=== PATIENT | male | born 1965 | race Caucasian/White ===

== ENCOUNTER 2016-12-07 10:48 | Outpatient (CLI) | payer MEDICAID | END 2016-12-07 10:49 | disposition home or self-care (01) | DX: R53.83 Other fatigue (principal); M79.644 Pain in right finger(s) ==

== ENCOUNTER 2017-10-19 16:25 | Outpatient (CLI) | payer MEDICAID ==
--- NOTE | 2017-10-19 22:41 | XRAY Report ---
EXAM: CHEST RADIOGRAPHY EXAM DATE: 10/19/2017 04:40 PM. CLINICAL HISTORY: COUGH. COMPARISON: 01/19/2016. TECHNIQUE: 2 views. FINDINGS: Lungs/Pleura: No focal opacities evident. No pleural effusion. No pneumothorax. Normal volumes. Mediastinum: Heart and mediastinal contours are unremarkable. Other: None. IMPRESSION: No acute intrathoracic plain film abnormality. [facility] Referring Provider Line: [phone] SITE ID: [id number]
== END 2017-10-19 16:26 | disposition home or self-care (01) ==
LOC: DI.S 16:25
PROVIDERS: ATTEND Nurse Practitioner Family
DX: R06.02 Shortness of breath (principal)
CPT/HCPCS: 71020

== ENCOUNTER 2017-12-18 13:09 | Outpatient (CLI) | payer MEDICAID ==
--- NOTE | 2017-12-18 18:04 | XRAY Report ---
THREE VIEW RIGHT FOURTH FINGER: 12/18/2017 CLINICAL INDICATION: Pain. FINDINGS: AP, lateral, oblique views of the right fourth finger demonstrate no evidence of fracture or dislocation. Soft tissue swelling is seen at the proximal interphalangeal joint. No radiopaque foreign body is seen in the soft tissues. IMPRESSION: SOFT TISSUE SWELLING, BUT NO EVIDENCE OF FRACTURE. TD: 12/18/2017 18:03
== END 2017-12-18 13:10 | disposition home or self-care (01) ==
LOC: DI.S 13:09
PROVIDERS: ATTEND Nurse Practitioner Family
DX: M79.644 Pain in right finger(s) (principal); R22.31 Localized swelling, mass and lump, right upper limb
CPT/HCPCS: 73140

== ENCOUNTER 2018-03-12 09:56 | Outpatient (CLI) | payer MEDICAID ==
--- NOTE | 2018-03-12 12:55 | XRAY Report ---
THREE VIEW LEFT FOURTH FINGER: 03/12/2018 CLINICAL INDICATION: Fall, pain. FINDINGS: AP, lateral, oblique views of the left fourth finger demonstrate soft tissue swelling at the proximal interphalangeal joint. There is no evidence of acute fracture or dislocation. No foreign body is seen in the soft tissues. IMPRESSION: SOFT TISSUE SWELLING, BUT NO EVIDENCE OF ACUTE FRACTURE. TD: 03/12/2018 12:55
== END 2018-03-12 09:57 | disposition home or self-care (01) ==
LOC: DI.S 09:56
PROVIDERS: ATTEND Nurse Practitioner Family
DX: M25.442 Effusion, left hand (principal); M79.645 Pain in left finger(s)
CPT/HCPCS: 73140

== ENCOUNTER 2018-03-22 13:50 | Outpatient (CLI) | payer MEDICAID ==
[~2018-03-22 13:50] MED LIST: GADOBUTROL 10 MMOL/10 ML SYRINGE ONE
[2018-03-22] MEDS ORDERED: GADOBUTROL 10 MMOL/10 ML SYRINGE IVP ONE (15:00)
--- NOTE | 2018-03-23 16:29 | MRI Report ---
EXAM: MRI LUMBAR SPINE WITHOUT AND WITH CONTRAST EXAM DATE: 03/22/2018 02:00 PM. CLINICAL HISTORY: 52-year-old with chronic low back pain and pain radiating to the lower extremities. Evaluate for lumbar pathology. COMPARISONS: MR lumbar spine 01/15/2013. TECHNIQUE: Multiplanar, multisequence T1-weighted and fluid-sensitive sequences of the lumbar spine f rom T12 to S1 before and after administration of intravenous contrast. Other: None. IV contrast: 8 cc GADAVIST. FINDINGS: Motion artifact technically limits evaluation. Spinal Cord: The conus terminates at L2-L3 which is low-lying but within normal limits. The conus med ullaris and cauda equina are unremarkable. Alignment: There is 1-2 mm coronal retrolisthesis of L2-L3, L3 on L4, L4 and L5, and L5 on S1. Bone Marrow: Five auc-qfa-ibjsxeu lumbar vertebral bodies are assumed. There is enhancing edema seen involving the spinous processes of L4 and L5 with mild edema and enhancement of the surrounding soft tissues. No rim-enhancing fluid collection seen. No acute fracture. There is minimal enhancing endpla te edema seen throughout the lumbar spine. No marrow replacing lesion. Disk Levels/Facets: T12-L1: Minimal endplate degenerative change with mild loss of disk height. No spinal canal stenosis or neural foraminal narrowing. L1-L2: Minimal endplate degenerative change with mild loss of disk height. No spinal canal stenosis o r neural foraminal narrowing. L2-L3: Minimal endplate degenerative change with mild loss of disk height. Small posterior disk bulge . Bilateral facet disease. Fluid is seen within the facets bilaterally. No spinal canal stenosis. Min imal bilateral neural foraminal narrowing. L3-L4: Minimal endplate degenerative change with mild loss of disk height. Small posterior disk bulge with superimposed bilateral foraminal lateral disk protrusions, greater on the right. Bilateral face t disease. Fluid is seen within the facets bilaterally. No spinal canal stenosis. Mild to moderate ri ght and mild left neural foraminal narrowing. L4-L5: Minimal endplate degenerative change with mild loss of disk height. Small posterior disk bulge with superimposed bilateral foraminal lateral disk protrusions, greater on the right. Bilateral face t disease. Fluid is seen within the facets bilaterally. No spinal canal stenosis. Moderate bilateral neural foraminal narrowing with potential mass effect on exiting bilateral L4 nerve roots. L5-S1: Minimal endplate degenerative change with mild loss of disk height and slight disk desiccation . Small posterior disk bulge. Bilateral facet disease. No spinal canal stenosis. Minimal bilateral ne ural foraminal narrowing. Spinal Canal: No enhancing masses within the spinal canal. No epidural abscess. Musculature: Normal. No edema, abnormal enhancement, or fatty atrophy. Other: The visualized retroperitoneum is unremarkable. IMPRESSION: 1. There is 1-2 mm coronal retrolisthesis of L2-L3, L3 on L4, L4 and L5, and L5 on S1. 2. There is enhancing edema seen involving the spinous processes of L4 and L5 with mild edema and enh ancement of the surrounding soft tissues. No rim-enhancing fluid collection seen. Finding may represe nt [place]'s disease. 3. Multilevel degenerative changes that appear slightly progressed from 01/15/2013. L2-L3: No spinal canal stenosis. Minimal bilateral neural foraminal narrowing. L3-L4: No spinal canal stenosis. Mild to moderate right and mild left neural foraminal narrowing. L4-L5: No spinal canal stenosis. Moderate bilateral neural foraminal narrowing with potential mass ef fect on exiting bilateral L4 nerve roots. L5-S1: Small posterior disk bulge. Bilateral facet disease. No spinal canal stenosis. Minimal bilater al neural foraminal narrowing. Comment: The following findings are so common in adults without low back pain that while we report th eir presence, they must be interpreted with caution and in the context of the clinical situation. (Re cindy Awad et al, Spine 2001) Prevalence of findings in patients without low back pain: Disk degeneration (any evidence): 92% Disk desiccation/T2 signal loss: 83% Disk height loss: 56% Disk bulge: 64% Disk protrusion: 32% Annular tear/high intensity zone: 38% [facility] Referring Provider Line: [phone] SITE ID: [id number]
== END 2018-03-22 13:51 | disposition home or self-care (01) ==
LOC: DI 13:50
PROVIDERS: ATTEND Psychiatry & Neurology Neurology
DX: M51.17 Intervertebral disc disorders with radiculopathy, lumbosacral region (principal); R20.2 Paresthesia of skin
CPT/HCPCS: 72158; A9585

== ENCOUNTER 2022-12-08 13:50 | Outpatient (CLI) | payer MEDICAID | END 2022-12-08 13:51 | disposition critical access hospital (66) | LOC: EMS 13:50 | DX: M54.9 Dorsalgia, unspecified (principal); G89.29 Other chronic pain; R29.898 Other symptoms and signs involving the musculoskeletal system; R20.0 Anesthesia of skin | CPT/HCPCS: A0425; A0429; A0999 ==

== ENCOUNTER 2022-12-08 14:27 | Emergency (ER) | payer MEDICAID ==
[2022-12-08 14:40] VITALS: BP 186/101
--- NOTE | 2022-12-08 14:45 | ED Physician Documentation ---
PD HPI BACK PAIN - Stated complaint Stated Complaint: BACK PX - History obtained from History obtained from: Patient, EMS - History of Present Illness Timing - onset: Chronic (The patient claims chronic leg pain that is unrelenting and keeps him awake and he never has any cessation of it. I asked the duration and he said for many years. Review of prior visits showed back pain complaint as far back as 2016 with apparently some disability from it. Neurology 2018.) Timing - duration: Years Timing - details: Gradual onset, Still present, Waxing and waning. No: Intermittant Location: Lower, Right, Left, Other (with lower ext pain both legs chronically as well.) Quality: Pain, Aching. No: Spasm Associated symptoms: Numbness (small area of numbness left medial lower leg distal to prior vein stripping. No general numbness.). No: Fever, Weakness Worsened by: Movement (walking causes more leg pain.). No: Palpation Similar symptoms before: No diagnosis Recently seen: Not recently seen (I asked his last visits and he states clinic v isits with Dr. Austin in [facility]. That provider left over a year or more ago.) Review of Systems Constitutional: reports: Fatigue. denies: Fever, Chills Nose: denies: Rhinorrhea / runny nose, Congestion Throat: denies: Sore throat Respiratory: denies: Cough Musculoskeletal: reports: Back pain. denies: Neck pain, Extremity swelling Neurologic: denies: Focal weakness, Difficulty speaking PD PAST MEDICAL HISTORY - Past Medical History Cardiovascular: None Respiratory: None Endocrine/Autoimmune: None GI: None : None HEENT: None Psych: Depression, Panic attacks Musculoskeletal: Chronic back pain Derm: None - Past Surgical History Past Surgical History: Yes HEENT: Tonsil/Adenoidectomy - Present Medications Home Medications: Ambulatory Orders Medication Instructions Recorded Confirmed Gabapentin [Neurontin] 800 mg PO BID 01/19/16 01/19/16 Cyclobenzaprine [Flexeril] 10 mg 02/14/16 oxyCODONE [Roxicodone] 5 mg PO Q4-6H PRN #20 tablet 02/14/16 Amitriptyline [Elavil] 50 mg PO HS 20 Days #40 tablet 12/08/22 Meloxicam [Mobic] 7.5 mg PO BID 10 Days #20 tablet 12/08/22 - Allergies Allergies/Adverse Reactions: Allergies Allergy/AdvReac Type Severity Reaction Status Date / Time No Known Drug Allergies Allergy Verified 12/08/22 14:40 - Social History Does the pt smoke?: Yes Smoking Status: Current every day smoker Does the pt drink ETOH?: Yes Does the pt have substance abuse?: Yes PD ED PE NORMAL - Vitals Vital signs reviewed: Yes - General General: Alert and oriented X 3, Well developed/nourished, Other (He has a smell of alcohol on his breath. Slightly increased emotionality.) - Cardiac Cardiac: RRR, No murmur - Respiratory Respiratory: No respiratory distress, Clear bilaterally - Abdomen Abdomen: Soft, Non tender, Non distended - Back Back: No spinal TTP (some tender rgith lower lumbar area. No rash/redness/swelling. ) - Derm Derm: Normal color, Warm and dry, No rash - Neuro Neuro: Alert and oriented X 3, No motor deficit, Normal speech, Other (normal patellar reflexes. Decreased sensation to touch medial left lower leg locally. No generalized numbness. ) Results - Vitals Vitals: Vital Signs - 24 hr 12/08/22 14:34 Temperature 36.7 C Heart Rate 101 H Respiratory 16 Rate Blood Pressure 186/101 H O2 Saturation 99 Oxygen O2 Source Room air - Labs Labs: Laboratory Tests 12/08/22 12/08/22 12/08/22 14:53 14:53 14:53 WBC 5.1 RBC 4.36 L Hgb 14.3 Hct 41.5 L MCV 95.2 H MCH 32.8 H MCHC 34.5 RDW 12.1 Plt Count 275 MPV 9.8 Neut # (Auto) 2.4 Lymph # (Auto) 2.2 Adams # (Auto) 0.4 Eos # (Auto) 0.1 Baso # (Auto) 0.1 Absolute Nucleated RBC 0.00 Nucleated RBC % 0.0 ESR 1 Sodium 141 Potassium 3.7 Chloride 100 L Carbon Dioxide 27 Anion Gap 14.0 H BUN 9 Creatinine 0.7 Estimated GFR (MDRD) 117 Glucose 110 H Calcium 9.1 Magnesium 2.1 Total Bilirubin 0.9 AST 41 ALT 20 Alkaline Phosphatase 68 C-Reactive Protein < 1.0 Total Protein 7.7 Albumin 4.6 Globulin 3.1 Albumin/Globulin Ratio 1.5 Lipase 44 Ethyl Alcohol 356.1 PD Medical Decision Making - ED course Complexity details: reviewed old records (Review of the MRI report from 2018 of the lumbar spine showed multilevel mild spondylolisthesis and mild disc herniations without any central canal stenosis. There was some spinous process edema at L4 and L5. No subsequent imaging or visits.), re-evaluated patient (I was about to discharge patient with scripts for neuropathy pain. He left without giving notice to staff. I asked his nurse to call him and tell him I sent scripts to the paharmacy. ), considered differential (Complains of chronic persistent bilateral leg pain from neuropathy. Not seen in the clinic for 1-1/2 years. Currently takes Tylenol if needed. Prior prescription of Neurontin and oxycodone years ago. No current prescriptions.) Social Determinants of Health: The patient seems intoxicated on arrival by EMS. I asked if he used the alcohol to help the neuropathy or drink just on its own and he said just on its own. This certainly could be contributing to neuropathy. The patient states prior thought was for lumbar nerve root causes of the pain. He states he had been on Neurontin 300 mg 3 times a day at one point and did not have any improvement. Otherwise he had gotten scripts of oxycodone periodically. No recent prescriptions. Departure - Departure Disposition: ED Elope Clinical Impression: Bilateral leg pain, Neuropathy, Alcohol intoxication Condition: Stable Record reviewed to determine appropriate education?: Yes Follow-Up: [facility] [Provider Group] Prescriptions: Amitriptyline [Elavil] 50 mg PO HS 20 Days #40 tablet Meloxicam [Mobic] 7.5 mg PO BID 10 Days #20 tablet Comments: Your basic kidney function electrolytes and blood sugar are good. Your blood alcohol is quite elevated. Long-term alcohol use can cause neuropathy so being less alcohol can help to your symptoms. Seek help for alcohol cessation. Otherwise the neuropathy can come from nerve irritation from the low back as well. We can try combination of meloxicam anti-inflammatory taken with food twice daily. Also amitriptyline 50 mg at night for the next few weeks and see if that helps with the neuropathy. This is another medication used for neuropathy. I sent these prescriptions to [facility] pharmacy. Call the [facility] for follow-up appointment to this ER visit. They will commonly get you in sooner for follow-up of this and then assign you to new provider for ongoing care subsequently. You could follow-up at the walk-in clinic as well. Discharge Date/Time: 12/08/22 16:11
[2022-12-08] MEDS ORDERED: KETOROLAC 30 MG/ML VIAL IM STA (14:47)
[2022-12-08] MEDS ORDERED: HYDROcod/ACETAM 5/325 MG TABLET PO STA (14:48)
[2022-12-08 15:01] LABS: BASOPHILS # (AUTO) 0.1 10^3/uL (0.0-0.1); BASOPHILS % (AUTO) 1.4 %; EOSINOPHILS # (AUTO) 0.1 10^3/uL (0.0-0.7); EOSINOPHILS % (AUTO) 1.2 %; HCT - HEMATOCRIT 41.5 % (42.0-52.0); HGB - HEMOGLOBIN 14.3 g/dL (14.0-18.0); LYMPHOCYTES # (AUTO) 2.2 10^3/uL (1.5-3.5); MEAN CORPUSCULAR HEMOGLOBIN 32.8 pg (27.0-31.0); MEAN CORPUSCULAR HGB CONC 34.5 g/dL (32.0-36.0); MEAN CORPUSCULAR VOLUME 95.2 fL (80.0-94.0); MEAN PLATELET VOLUME 9.8 fL (7.4-11.4); MONOCYTES # (AUTO) 0.4 10^3/uL (0.0-1.0); MONOCYTES % (AUTO) 6.9 %; NEUTROPHILS # (AUTO) 2.4 10^3/uL (1.5-6.6); NEUTROPHILS % (AUTO) 47.3 %; PLT - PLATELET COUNT 275 10^3/uL (130-450); RED BLOOD COUNT 4.36 10^6/uL (4.70-6.10); RED CELL DISTRIBUTION WIDTH 12.1 % (12.0-15.0); WHITE BLOOD COUNT 5.1 x10^3/uL (4.8-10.8)
[2022-12-08 15:21] LABS: ALBUMIN 4.6 g/dL (3.2-5.5); ALBUMIN/GLOBULIN RATIO 1.5 (1.0-2.2); ALKALINE PHOSPHATASE 68 IU/L (42-121); ALT ALANINE AMINOTRANSFERASE 20 IU/L (10-60); AST ASPARTATE AMINOTRANSFERASE 41 IU/L (10-42); BILIRUBIN,TOTAL 0.9 mg/dL (0.2-1.0); BUN - BLOOD UREA NITROGEN 9 mg/dL (6-20); CALCIUM 9.1 mg/dL (8.5-10.3); CARBON DIOXIDE - CO2 27 mmol/L (21-32); CHLORIDE 100 mmol/L (101-111); CREATININE 0.7 mg/dL (0.6-1.2); ETOH - ETHANOL 356.1 mg/dL; GFR - MDRD 117 (>89); GLUCOSE 110 mg/dL (70-100); LIPASE 44 U/L (22-51); MAGNESIUM 2.1 mg/dL (1.7-2.8); POTASSIUM 3.7 mmol/L (3.5-5.0); SODIUM 141 mmol/L (135-145); TOTAL PROTEIN 7.7 g/dL (6.7-8.2)
[2022-12-08 15:26] LABS: CRP - C-REACTIVE PROTEIN < 1.0 mg/dL (0-1.0)
== END 2022-12-08 16:11 | disposition left against medical advice (07) ==
LOC: EDUNIT# → ED 14:27
DX: G62.9 Polyneuropathy, unspecified (principal); F10.129 Alcohol abuse with intoxication, unspecified; Y90.8 Blood alcohol level of 240 mg/100 ml or more; F17.200 Nicotine dependence, unspecified, uncomplicated
CPT/HCPCS: 36415; 80053; 80320; 83690; 83735; 85025; 85651; 86140; 96372; 99283; 99284; A9270

== ENCOUNTER 2023-07-09 08:57 | Emergency (ER) | payer MEDICAID ==
--- NOTE | 2023-07-09 11:00 | ED Physician Documentation ---
PD HPI HEENT - Stated complaint Stated Complaint: RT SIDE TOOTH PX - Chief complaint Chief Complaint: Heent - History obtained from History obtained from: Patient - History of Present Illness Timing - onset: Today, Last night Timing - details: Abrupt onset, Still present Location: Tooth Associated symptoms: No: Fever, Congestion Similar symptoms before: Diagnosis (poor dentition and has had gum/teeth infections in past.) Review of Systems Constitutional: denies: Fever, Chills Nose: denies: Rhinorrhea / runny nose, Congestion Throat: reports: Dental pain / toothache. denies: Sore throat PD PAST MEDICAL HISTORY - Past Medical History Past Medical History: Yes Cardiovascular: None Respiratory: None Neuro: Peripheral neuropathy Endocrine/Autoimmune: None GI: None : None HEENT: None Psych: Depression, Panic attacks Musculoskeletal: Chronic back pain Derm: None - Past Surgical History Past Surgical History: Yes HEENT: Tonsil/Adenoidectomy - Present Medications Home Medications: Ambulatory Orders Medication Instructions Recorded Confirmed Gabapentin [Neurontin] 800 mg PO BID 01/19/16 07/09/23 Chlorhexidine Gluconate [Peridex] 10 ml MM BID #118 ml 07/09/23 Clindamycin [Cleocin] 300 mg PO TID 7 Days #20 cap 07/09/23 DULoxetine [Cymbalta] 60 mg PO BID 07/09/23 07/09/23 Naproxen 500 mg PO BID #14 tab 07/09/23 Oxycodone HCl/Acetaminophen 1 tab ORAL Q12H PRN 07/09/23 07/09/23 [Oxycodone-Acetaminophen 5-325] Oxycodone HCl/Acetaminophen 1 each PO Q6H PRN #14 tablet 07/09/23 [Percocet 5-325 mg Tablet] Trazodone HCl 100 mg PO HS 07/09/23 07/09/23 hydrOXYzine HCL [Hydroxyzine HCl] 25 mg PO Q6HR PRN 07/09/23 07/09/23 - Allergies Allergies/Adverse Reactions: Allergies Allergy/AdvReac Type Severity Reaction Status Date / Time No Known Drug Allergies Allergy Verified 12/08/22 14:40 - Social History Does the pt smoke?: Yes Smoking Status: Current every day smoker Does the pt drink ETOH?: No Does the pt have substance abuse?: Yes Substance Use and Type: Marijuana - Immunizations Immunizations are current?: Yes PD ED PE NORMAL - Vitals Vital signs reviewed: Yes - General General: Alert and oriented X 3, No acute distress, Well developed/nourished - HEENT HEENT: Pharynx benign. No: Dentition benign (multiple cavities/decay. Swelling with tender gum area upper left. No fluctuance. ) - Neck Neck: Supple, no meningeal sign, No adenopathy Results - Vitals Vitals: Oxygen O2 Source Room air PD Medical Decision Making - ED course Complexity details: considered differential (poor dntition and has had dental infections in the past. Feeling ready to go to dentist. ), d/w patient Departure - Departure Disposition: Home, Self Care Clinical Impression: Infected dental caries Condition: Stable Record reviewed to determine appropriate education?: Yes Follow-Up: DOMENICA PARRA DO [Primary Care Provider] - Prescriptions: Clindamycin [Cleocin] 300 mg PO TID 7 Days #20 cap Naproxen 500 mg PO BID #14 tab Oxycodone HCl/Acetaminophen [Percocet 5-325 mg Tablet] 1 each PO Q6H PRN #14 tablet PRN Reason: pain Chlorhexidine Gluconate [Peridex] 10 ml MM BID #118 ml Comments: Rinse the mouth with water and chlorhexidine twice daily to help reduce germs within the cavities and gums. Clindamycin antibiotic 3 times daily for the next week for the infection. For the inflammation and pain use naproxen anti-inflammatory twice daily with food. To that add Tylenol every 4-6 hours if needed for pain or Percocet if needed for worse pain. Recheck if not improving well over the next few days and return if worse. Subsequently follow-up with dental clinic/dentist for more definitive care of the teeth to reduce the incidence of recurrent infections. I sent your prescriptions to the pharmacy. My narcotic instructions I am prescribing a short course of narcotic pain medication for you. These are potentially dangerous and addictive medications that should be used carefully. These medications may constipate you. Take an gyzh-pep-ffwxueo stool softener such as docusate twice daily with plenty of water while taking these medications. If you go 24 hours without a bowel movement, take vfrg-tff-gfdjvro MiraLAX, per package instructions. Do not drink or drive while taking these medications. If you received narcotic or sedating medications while in the emergency department do not drive for 24 hours. Store this medication in a safe, secure place and out of reach of children. It is a violation of federal law to give or sell this medication to another person or to use in a manner other than prescribed. The ED will not refill narcotic prescriptions, including prescriptions lost or stolen. You can dispose of unwanted medications at the [facility]'s office or at several pharmacies such as [facility]. Forms: PCP List Discharge Date/Time: 07/09/23 11:33
[2023-07-09] MEDS ORDERED: oxyCODONE 5 MG TABLET PO STA (11:16)
[2023-07-09] MEDS ORDERED: IBUPROFEN 600 MG TABLET PO STA (11:16)
[2023-07-09] MEDS ORDERED: CLINDAMYCIN 150 MG CAPSULE PO STA (11:16)
[2023-07-09 11:36] VITALS: BP 138/79; O2SAT 99
== END 2023-07-09 11:33 | disposition home or self-care (01) ==
LOC: ED 08:57
DX: K02.9 Dental caries, unspecified (principal); F17.200 Nicotine dependence, unspecified, uncomplicated
CPT/HCPCS: 99283; 99284; A9270

== ENCOUNTER 2024-02-03 08:45 | Emergency (ER) | payer MEDICAID ==
--- NOTE | 2024-02-03 09:16 | ED Physician Documentation ---
PD HPI ABD PAIN - Stated complaint Stated Complaint: POST OP PX ABD - Chief complaint Chief Complaint: Abd Pain - History obtained from History obtained from: Patient - History of Present Illness Timing - onset: How many days ago (9) Timing - duration: Days (9) Timing - details: Abrupt onset, Still present, Waxing and waning (he had laparoscopic bilateral inguinal hernia repair 9 days ago with post op pain. Prior chronic pain of back/etc with oxycodone 10 mg TID for long time. Was Rx percocet 5 mg post op, and took 2 per dose at agreement of surgery office. Still having poor pain control. Took usual pain meds since. out.) Quality: Cramping, Aching, Pain Location: Other (pain lower abd. He denies redness, drainage, fever. No vomiting. Firm stool without constipation. Hesitancy urinating.) Review of Systems Constitutional: denies: Fever, Chills GI: reports: Abdominal Pain, Nausea. denies: Vomiting, Diarrhea, Bloody / black stool : reports: Hesitancy. denies: Dysuria PD PAST MEDICAL HISTORY - Past Medical History Cardiovascular: None Respiratory: None Neuro: Peripheral neuropathy Endocrine/Autoimmune: None GI: None : None HEENT: None Psych: Depression, Panic attacks Musculoskeletal: Chronic back pain Derm: None - Past Surgical History Past Surgical History: Yes HEENT: Tonsil/Adenoidectomy - Present Medications Home Medications: Ambulatory Orders Medication Instructions Recorded Confirmed DULoxetine [Cymbalta] 60 mg PO BID 07/09/23 02/03/24 Oxycodone HCl/Acetaminophen 1 tab ORAL Q12H PRN 07/09/23 02/03/24 [Oxycodone-Acetaminophen 5-325] Oxycodone HCl/Acetaminophen 1 each PO Q6H PRN #14 tablet 07/09/23 02/03/24 [Percocet 5-325 mg Tablet] Trazodone HCl 100 mg PO HS 07/09/23 02/03/24 hydrOXYzine HCL [Hydroxyzine HCl] 25 mg PO Q6HR PRN 07/09/23 02/03/24 Buspirone HCl 10 mg PO DAILY 02/03/24 02/03/24 Oxycodone HCl/Acetaminophen 1 each PO QID #25 tablet 02/03/24 [Percocet 10-325 mg Tablet] - Allergies Allergies/Adverse Reactions: Allergies Allergy/AdvReac Type Severity Reaction Status Date / Time No Known Drug Allergies Allergy Verified 02/03/24 08:56 - Social History Does the pt smoke?: Yes Smoking Status: Current every day smoker Does the pt drink ETOH?: No Does the pt have substance abuse?: Yes - Immunizations Immunizations are current?: Yes PD ED PE NORMAL - Vitals Vital signs reviewed: Yes - General General: Alert and oriented X 3, Well developed/nourished - Neck Neck: Supple, no meningeal sign, No adenopathy - Cardiac Cardiac: RRR, No murmur - Respiratory Respiratory: Clear bilaterally - Abdomen Abdomen: Soft, Other (scopic incisions without redness nor drainage. Lower abd with firmness in areas of hernia repair c/w repair. No warmth nor redness. Bladder area full but scanner only 123 ml. ). No: Normal bowel sounds (decreased) Results - Vitals Vitals: Vital Signs - 24 hr 02/03/24 10:42 Heart Rate 60 Respiratory 16 Rate Blood Pressure 130/77 O2 Saturation 96 Oxygen O2 Source Room air PD Medical Decision Making - ED course Complexity details: re-evaluated patient (feeling improved pain with just small dosing IM Dilaudid here. I can give Rx for oxycodone 10 mg 4-5 times daily until PCP appt later this week. It is reasonable heneeded chronic dosing of 10 mg TID plus extra dosing to account for new post op pain for short term. ), considered differential (termite helper pain meds and has Rx post op for less than usual pain meds. Out now. Sees PCP this coming week. No signs of infection. Some hesitancy urinating but residual here is small. ), d/w patient Departure - Departure Disposition: 01 Home, Self Care Clinical Impression: Postoperative abdominal pain Condition: Stable Record reviewed to determine appropriate education?: Yes Instructions: Abdominal Pain Follow-Up: DOMENICA PARRA, [Primary Care Provider] - Prescriptions: Oxycodone HCl/Acetaminophen [Percocet 10-325 mg Tablet] 1 each PO QID #25 tablet Comments: It makes sense that you are pain is above baseline and hurting a lot in the surgical area. Your chronic pain medicine of oxycodone 10 mg 3 times a day would have created a tolerance level in your system over time such that you would need at least that amount and then extra for the added pain of surgery. I wrote prescription for [facility] milligram Percocet to use 4-5 times daily in the short-term until your upcoming appointment with your normal provider. Continue with some anti-inflammatories such as ibuprofen 3 times daily. Continue with your MiraLAX and increase it to 2-3 times daily over the next several days to week. Add docusate stool softener daily as well. He want to be having loose easy stools but not add's laxative stimulation per se. Your bladder scanner showed just small amount of residual urine in the bladder so retention is not an issue right now. I sent your prescriptions to your preferred pharmacy. Follow-up with your primary care as scheduled. Return if worse. Your wounds do not appear infected. You do not have general peritoneal signs I do not think it is a complication of the surgery but just a normal byproduct of the surgery with the pain and swelling. Forms: PCP List Discharge Date/Time: 02/03/24 10:53
[2024-02-03] MEDS: HYDROmorphone 2 MG/ML VIAL IM STA (10:13)
[2024-02-03] MEDS: KETOROLAC 30 MG/ML VIAL IM STA (10:13)
[2024-02-03 10:50] VITALS: BP 130/77; O2SAT 96
== END 2024-02-03 10:53 | disposition home or self-care (01) ==
LOC: ED 08:45
DX: G89.18 Other acute postprocedural pain (principal); R10.30 Lower abdominal pain, unspecified; F17.200 Nicotine dependence, unspecified, uncomplicated
CPT/HCPCS: 96372; 99283; 99284; J1170